=== PATIENT | male | born 1930 | race Caucasian/White ===

== ENCOUNTER 2018-06-20 11:21 | Outpatient (CLI) | payer MEDICARE, OTHER ==
[2018-06-20 12:19] LABS: eGFR (Non-African) > 60
--- NOTE | 2018-06-20 14:52 | Diagnostic Imaging Report ---
GABRIEL QUINTANILLA [facility] [id number] [facility] [address] [place] [id number]. [id number] Report Submission Date: Jun 20, 2018 1:05:23 PM CDT Patient Study Name: ANGEL NEWTON Date: Jun 20, 2018 12:25:56 PM CDT Modality Type: CT\SR Gender: M Description: CT ABD PELVIS W/ CON : [birth year] Institution: [facility] Physician: GABRIEL QUINTANILLA CT abdomen and pelvis with contrast History: Constipation. Abdominal bloating Technique: Helically acquired images were obtained from the hemidiaphragms to the pelvic floor following IV contrast. Findings: There is a 1 cm cyst within the left hepatic lobe. The otherwise, the liver is unremarkable. The spleen, adrenal glands, gallbladder, pancreas and the left kidney are unremarkable. Small cysts of the right kidney are present. There is a small hiatal hernia. The wall of the hiatal hernia and the wall of the gastric fundus appear mildly thickened. The abdominal aorta is normal in caliber. The appendix is normal. There is increased stool throughout the right colon. Multiple loops of distal small bowel are mildly distended with fluid and equivocally mildly thick walled. These findings could represent a mild small bowel enteritis or could possibly relate to the considerable constipation of the right colon. There is no free fluid in the abdomen or pelvis. Diverticula of the sigmoid colon are present but there is no evidence for active diverticulitis. The bladder, seminal vesicles prostate gland are unremarkable. Lung bases are clear. Bilateral L5 pars defects are present without spondylolisthesis. Large anterior marginal osteophytes of the lower lumbar spine are present. Impression: There is a small hiatal hernia. The wall of the hiatal hernia and the wall of the gastric fundus appear mildly thickened, perhaps relating to incomplete distension but the possibility of an inflammatory process or perhaps a neoplastic process involving the gastric fundus would not be excluded. Consider upper GI series. Several loops of distal small bowel are mildly fluid distended with perhaps mild mural thickening. There is increased stool throughout the right colon. These fluid-filled and mildly dilated small bowel loops may be secondary to the increased stool in the right colon with delayed passage. However, a mild distal small bowel enteritis would not be excluded. Sigmoid diverticulosis. Bilateral L5 spondylolysis. Electronically signed on Jun 20, 2018 1:05:23 PM CDT by: Shivani STEELE
== END 2018-06-20 11:22 ==
LOC: RAD 11:21
PROVIDERS: ATTEND Family Medicine
DX: R14.0 Abdominal distension (gaseous) (principal); Z13.9 Encounter for screening, unspecified
CPT/HCPCS: 36415; 74177; 82565